=== PATIENT | male | born 1960 | race Caucasian/White ===

== ENCOUNTER 2024-08-20 10:39 | Day surgery (SDC) | payer MEDICARE, SELFPAY ==
--- NOTE | 2024-08-16 14:28 | PAT.ANESEVAL ---
Pre-Assessment Diagnosis/Proposed Procedure Planned Operative Procedure(s): CSCOPE Anesthesia History Anesthesia History - assistant director of financial aid: Anesthesia History - assistant director of financial aid Hx Hospitalization No 08/16/24 11:27 Any Problems With Anesthesia No 08/16/24 11:27 Cholinesterase deficiency No 08/16/24 11:27 You/Your Family Experience No 08/16/24 11:27 fever (hyperthermia) with Relationship Recent Exposure to Contagious Disease Does patient have nerve No 08/16/24 11:27 stimulator Patient instructed to have device shut off --Does patient have Pacemaker or ICD? When Was Last Pacemaker Check QUESTION #4 FULL TEXT: You/Your Family Experience fever (hyperthermia) with Anesthesia Last Oral Intake Last Oral intake: Last Oral Intake NPO since Meds taken in AM with sips of water? Meds patient instructed to take am of surgery PONV PONV - assistant director of financial aid: PONV - assistant director of financial aid Female No 08/16/24 11:27 HX of Motion Sickness No 08/16/24 11:27 HX of N/V After Surgery No 08/16/24 11:27 Non-Smoker Yes 08/16/24 11:27 Duration of Surgery greater No 08/16/24 11:27 than 60 minutes Number of Risk Factors 1 08/16/24 11:27 PONV Score Low Risk 08/16/24 11:27 Respiratory Assessment Respiratory Assessment - assistant director of financial aid: Respiratory Tract Infection Hx - assistant director of financial aid Hx Respiratory Tract Infection No 08/16/24 11:27 STOP Sleep Apnea STOP Sleep Apnea - assistant director of financial aid: STOP Sleep Apnea - assistant director of financial aid Hx Hypertension Yes: CONTROLLED WITH MED 08/16/24 11:27 Hx Sleep Apnea Yes 08/16/24 11:27 CPAP No 08/16/24 11:27 BIPAP Yes 08/16/24 11:27 Do you snore loudly (louder than talking or can be heard Do you often feel tired/ fatigued/ sleepy during daytime? Has anyone observed you stop breathing during sleep? STOP Results Positive 08/16/24 11:27 QUESTION #5 FULL TEXT : Do you snore loudly (louder than talking or can be heard through closed doors)? 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 Specify any problems Hx of Preganancy in last 3 N/A 08/16/24 11:27 Months Nurse Filling Out Transfusion DSCHRIBER 08/16/24 11:27 & Questions: Date: 08/16/24 08/16/24 11:27 Time: 11:08/16/24 11:27 Patient unable to answer at this time (ie. confused, unrespo /Reproduction History /Reproductive History - assistant director of financial aid: /Reproductive Hx- assistant director of financial aid Hx Now No 08/16/24 11:27 Gestational Age (in weeks): EDC: Hx Hx Para Hx Section SAB No 08/16/24 11:27 PFSH Medical History (Updated 08/16/24 @ 11:40 by Antoinette Mi) Loss of hearing Alcohol use Thyroid disease Insulin dependent diabetes mellitus History of renal disease DVT (deep venous thrombosis) Back pain Dietary restriction Former smoker BiPAP (biphasic positive airway pressure) dependence Shortness of breath on exertion Leg cramps History of edema History of echocardiogram History of stress test Cardiology follow-up encounter History of trigger finger Vitamin D deficiency History of colon polyps Peripheral neuropathy HLD (hyperlipidemia) GERD (gastroesophageal reflux disease) HTN (hypertension) Aortic thrombus Paroxysmal atrial fibrillation Home Medications ?Medication ?Instructions ?Recorded ?Last Taken ?Type apixaban 5 mg tablet (Eliquis) 5 mg PO BID 04/15/24 06/23/24 History ascorbic acid (vitamin C) 1,000 mg 1 g PO DAILY 04/15/24 Unknown History capsule insulin regular hum U-500 conc 500 See Rx Instructions .Route .COMPLEX 04/15/24 Unknown History unit/mL subcutaneous soln (Humulin R U-500 (Concentrated) Insulin) metoprolol succinate 200 mg 200 mg PO QDAY 04/15/24 Unknown History tablet,extended release 24 hr (Toprol XL) omega 1-ndk-teo-fish oil 300 1 cap PO QDAY 04/15/24 Unknown History mg-1,000 mg capsule (Fish Oil) rosuvastatin 10 mg tablet (Crestor) 10 mg PO QDAY 04/15/24 Unknown History semaglutide 0.25 mg or 0.5 mg (2 0.25 mg subcut QWEEK 04/15/24 08/01/24 History mg/3 mL) subcutaneous pen injector (Ozempic) lisinopril 30 mg tablet 30 mg PO DAILY 06/25/24 Unknown History magnesium 200 mg tablet 200 mg PO DAILY 06/25/24 Unknown History sotalol 80 mg tablet 40 mg PO BID 06/25/24 Unknown History cholecalciferol (vitamin D3) 125 125 mcg PO DAILY 08/16/24 Unknown History mcg (5,000 unit) tablet (Vitamin D3) dapagliflozin propanediol 10 mg 20 mg PO DAILY 08/16/24 08/16/24 History tablet (Farxiga) Allergy/AdvReac Type Severity Reaction Status Date / Time empagliflozin (From AdvReac Intermediate Other Verified 06/25/24 15:34 Jardiance) Family History Father Aspiration pneumonia Skin cancer Hypertension Mother COPD (chronic obstructive pulmonary disease) Surgical History (Updated 08/16/24 @ 11:40 by Antoinette Mi) Hx of right cataract extraction History of cardiac radiofrequency ablation H/O cardiac catheterization H/O colonoscopy History of carpal tunnel release of both wrists H/O right inguinal hernia repair H/O left inguinal hernia repair Social History Smoking Status: Former smoker quit date: 02/06/83 alcohol intake: current alcohol intake frequency: a few times a month substance use type: does not use Audit: Pertinent Findings Pertinent Findings EKG Perinent findings: 06/04/2024. Sinus rhythm premature supraventricular complexes. Otherwise negative. Echo (EF%) pertinent findings: 06/13/2024. EF 60 to 65%. Mild aortic stenosis. Mean gradient 6 mmHg. Recommendation Anesthesia Recommendation Anesthesia recommendation: OPTIMIZED for anesthesia
--- NOTE | 2024-08-16 14:28 | PAT.ANESEVAL ---
Pre-Assessment Diagnosis/Proposed Procedure Planned Operative Procedure(s): CSCOPE Anesthesia History Anesthesia History - contact center professional: Anesthesia History - contact center professional Hx Hospitalization No 08/16/24 11:27 Any Problems With Anesthesia No 08/16/24 11:27 Cholinesterase deficiency No 08/16/24 11:27 You/Your Family Experience No 08/16/24 11:27 fever (hyperthermia) with Relationship Recent Exposure to Contagious Disease Does patient have nerve No 08/16/24 11:27 stimulator Patient instructed to have device shut off --Does patient have Pacemaker or ICD? When Was Last Pacemaker Check QUESTION #4 FULL TEXT: You/Your Family Experience fever (hyperthermia) with Anesthesia Last Oral Intake Last Oral intake: Last Oral Intake NPO since Meds taken in AM with sips of water? Meds patient instructed to take am of surgery PONV PONV - contact center professional: PONV - contact center professional Female No 08/16/24 11:27 HX of Motion Sickness No 08/16/24 11:27 HX of N/V After Surgery No 08/16/24 11:27 Non-Smoker Yes 08/16/24 11:27 Duration of Surgery greater No 08/16/24 11:27 than 60 minutes Number of Risk Factors 1 08/16/24 11:27 PONV Score Low Risk 08/16/24 11:27 Respiratory Assessment Respiratory Assessment - contact center professional: Respiratory Tract Infection Hx - contact center professional Hx Respiratory Tract Infection No 08/16/24 11:27 STOP Sleep Apnea STOP Sleep Apnea - contact center professional: STOP Sleep Apnea - contact center professional Hx Hypertension Yes: CONTROLLED WITH MED 08/16/24 11:27 Hx Sleep Apnea Yes 08/16/24 11:27 CPAP No 08/16/24 11:27 BIPAP Yes 08/16/24 11:27 Do you snore loudly (louder than talking or can be heard Do you often feel tired/ fatigued/ sleepy during daytime? Has anyone observed you stop breathing during sleep? STOP Results Positive 08/16/24 11:27 QUESTION #5 FULL TEXT : Do you snore loudly (louder than talking or can be heard through closed doors)? 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 Specify any problems Hx of Preganancy in last 3 N/A 08/16/24 11:27 Months Nurse Filling Out Transfusion DSCHRIBER 08/16/24 11:27 & Questions: Date: 08/16/24 08/16/24 11:27 Time: 11:08/16/24 11:27 Patient unable to answer at this time (ie. confused, unrespo /Reproduction History /Reproductive History - contact center professional: /Reproductive Hx- contact center professional Hx Now No 08/16/24 11:27 Gestational Age (in weeks): EDC: Hx Hx Para Hx Section SAB No 08/16/24 11:27 PFSH Medical History (Updated 08/16/24 @ 11:40 by Antoinette Mi) Loss of hearing Alcohol use Thyroid disease Insulin dependent diabetes mellitus History of renal disease DVT (deep venous thrombosis) Back pain Dietary restriction Former smoker BiPAP (biphasic positive airway pressure) dependence Shortness of breath on exertion Leg cramps History of edema History of echocardiogram History of stress test Cardiology follow-up encounter History of trigger finger Vitamin D deficiency History of colon polyps Peripheral neuropathy HLD (hyperlipidemia) GERD (gastroesophageal reflux disease) HTN (hypertension) Aortic thrombus Paroxysmal atrial fibrillation Home Medications ?Medication ?Instructions ?Recorded ?Last Taken ?Type apixaban 5 mg tablet (Eliquis) 5 mg PO BID 04/15/24 06/23/24 History ascorbic acid (vitamin C) 1,000 mg 1 g PO DAILY 04/15/24 Unknown History capsule insulin regular hum U-500 conc 500 See Rx Instructions .Route .COMPLEX 04/15/24 Unknown History unit/mL subcutaneous soln (Humulin R U-500 (Concentrated) Insulin) metoprolol succinate 200 mg 200 mg PO QDAY 04/15/24 Unknown History tablet,extended release 24 hr (Toprol XL) omega 3-skp-tll-fish oil 300 1 cap PO QDAY 04/15/24 Unknown History mg-1,000 mg capsule (Fish Oil) rosuvastatin 10 mg tablet (Crestor) 10 mg PO QDAY 04/15/24 Unknown History semaglutide 0.25 mg or 0.5 mg (2 0.25 mg subcut QWEEK 04/15/24 08/01/24 History mg/3 mL) subcutaneous pen injector (Ozempic) lisinopril 30 mg tablet 30 mg PO DAILY 06/25/24 Unknown History magnesium 200 mg tablet 200 mg PO DAILY 06/25/24 Unknown History sotalol 80 mg tablet 40 mg PO BID 06/25/24 Unknown History cholecalciferol (vitamin D3) 125 125 mcg PO DAILY 08/16/24 Unknown History mcg (5,000 unit) tablet (Vitamin D3) dapagliflozin propanediol 10 mg 20 mg PO DAILY 08/16/24 08/16/24 History tablet (Farxiga) Allergy/AdvReac Type Severity Reaction Status Date / Time empagliflozin (From AdvReac Intermediate Other Verified 06/25/24 15:34 Jardiance) Family History Father Aspiration pneumonia Skin cancer Hypertension Mother COPD (chronic obstructive pulmonary disease) Surgical History (Updated 08/16/24 @ 11:40 by Antoinette Mi) Hx of right cataract extraction History of cardiac radiofrequency ablation H/O cardiac catheterization H/O colonoscopy History of carpal tunnel release of both wrists H/O right inguinal hernia repair H/O left inguinal hernia repair Social History Smoking Status: Former smoker quit date: 02/06/83 alcohol intake: current alcohol intake frequency: a few times a month substance use type: does not use Audit: Pertinent Findings Pertinent Findings EKG Perinent findings: 06/04/2024. Sinus rhythm premature supraventricular complexes. Otherwise negative. Echo (EF%) pertinent findings: 06/13/2024. EF 60 to 65%. Mild aortic stenosis. Mean gradient 6 mmHg. Recommendation Anesthesia Recommendation Anesthesia recommendation: OPTIMIZED for anesthesia
[2024-08-20] VITALS (8 sets, daily range): BP systolic 117–147; BP diastolic 66–79; PULSE 55–62; RESP 16–18; TEMP 36.5–36.6; O2SAT 94–97; BMI 41.5
[2024-08-20] MEDS: Lactated Ringers 1,000 ML 15 ML IV (11:20)
--- NOTE | 2024-08-20 12:00 | COLBX_PTH ---
PATIENT: JOSE LUIS BLACK LOC: EN U#:[id number] AGE/SX: 64/M ROOM: RE08/20/[address]: Dr. Edilson Porras DO : 1960 BED: DIS: 08/20/2024 SPEC #: [id number] RECD: 08/20/24 15:03 STATUS: CYNTHIA LANDAVERDE #: [id number] KARI: 08/20/24 12:[address]: Edilson Porras DEPT: SURGICAL PATHOLOGY RECD BY: Jonas Navarro ENTERED: 08/20/24 15:31 SP TYPE: COLON BX OTHR DR: Dr. Shelly Neely MD Tissues: A - Cecum, NOS B - Ascending colon Procedures: Surgery Specimen Level IV HEADER OPERATION: Colonoscopyy with polyp biopsy PRE-OP DIAGNOSIS: Encounter for screening colonoscopy for non-high risk patient TISSUE SUBMITTED: A- Cecal polyp biopsy, B- Ascending colon polyp biopsy MICROSCOPIC DIAGNOSIS A. Colon, cecum, polyp, biopsy: * Tubular adenoma B. Colon, ascending polyp, biopsy: * Sessile serrated adenoma MICROSCOPIC DESCRIPTION Slides are reviewed. GROSS DESCRIPTION A. Received in fixative is one container labeled with the patient's name and designated Cecal polyp biopsy. The specimen consists of two irregular fragments of light day soft tissue that in aggregate measure 0.1 to 0.4 cm. The specimen is totally submitted in one cassette. B. Received in fixative is one container labeled with the patient's name and designated Ascending colon polyp biopsy. The specimen consists of one irregular fragment of light day soft tissue that measures 0.3 cm. The specimen is totally submitted in one cassette. Oly 08/20/2024 CPT:09456a4
--- NOTE | 2024-08-20 12:00 | COLBX_PTH ---
PATIENT: JOSE LUIS BLACK LOC: EN U#:[id number] AGE/SX: 64/M ROOM: RE08/20/[address]: Dr. Edilson Porras DO : 1960 BED: DIS: 08/20/2024 SPEC #: [id number] RECD: 08/20/24 15:03 STATUS: CYNTHIA LANDAVERDE #: [id number] KARI: 08/20/24 12:[address]: Edilson Porras DEPT: SURGICAL PATHOLOGY RECD BY: Jonas Navarro ENTERED: 08/20/24 15:31 SP TYPE: COLON BX OTHR DR: Dr. Shelly Neely MD Tissues: A - Cecum, NOS B - Ascending colon Procedures: Surgery Specimen Level IV HEADER OPERATION: Colonoscopyy with polyp biopsy PRE-OP DIAGNOSIS: Encounter for screening colonoscopy for non-high risk patient TISSUE SUBMITTED: A- Cecal polyp biopsy, B- Ascending colon polyp biopsy MICROSCOPIC DIAGNOSIS A. Colon, cecum, polyp, biopsy: * Tubular adenoma B. Colon, ascending polyp, biopsy: * Sessile serrated adenoma MICROSCOPIC DESCRIPTION Slides are reviewed. GROSS DESCRIPTION A. Received in fixative is one container labeled with the patient's name and designated Cecal polyp biopsy. The specimen consists of two irregular fragments of light day soft tissue that in aggregate measure 0.1 to 0.4 cm. The specimen is totally submitted in one cassette. B. Received in fixative is one container labeled with the patient's name and designated Ascending colon polyp biopsy. The specimen consists of one irregular fragment of light day soft tissue that measures 0.3 cm. The specimen is totally submitted in one cassette. Oly 08/20/2024 CPT:90575h9
--- NOTE | 2024-08-20 12:15 | PRE.ANES_ITS ---
ASA Classification* ASA Classification ASA Classification: 3 Assessment & Plan Anesthesia* Anesthesia Assessment Anesthesia Assessment: Discussed sedation and/or anesthesia options, risks, benefits, and alternatives with patient/parents/legal guardian/POA. Questions invited. The patient/parents/legal guardian/POA seems to understand and agrees to proceed with anesthesia plan. Reviewed the physical assessment, medical history, allergy history and patient home medications list prior to surgery/procedure/anesthetic and documented any changes. Performed airway and anesthesia risk assessments. Anesthesia Type Anesthesia Type: MAC (Patient has mild aortic stenosis. Avoid increased heart rate or decrease blood pressure. Phenylephrine is drug of choice.) History Source History Obtained from:: Patient and Chart Anesthesia Focused Assessment* Temperature: 97.8 F Pulse Rate: 58 Blood Pressure: 147/79 Respiratory Rate: 18 Pulse Ox: 95 Oxygen Delivery Method: Room Air Airway Assessment Mouth opens: >3 cm Mallampati Score: III Teeth Condition: Loose (Tooth #13 is slightly loose.) and Missing (Patient is missing couple teeth.) Neck Range of motion (ROM): Limited ROM (Slight Decrease) Labs Anesthesia Preop lab: CBC CHEMISTRY POC Glucose 204 mg/dL (74-106) H 08/20/24 11:07 08/20/24 COAG Pre-Assessment Diagnosis/Proposed Procedure Planned Operative Procedure(s): CSCOPE Anesthesia History 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 When Was Last Pacemaker Check QUESTION #4 FULL TEXT: You/Your Family Experience fever (hyperthermia) with Anesthesia Last Oral Intake Last Oral intake: Last Oral Intake NPO since 08:00 08/20/24 11:17 Meds taken in AM with sips of Yes 08/20/24 11:17 water? Meds patient instructed to take am of surgery Any additional information?: Yes NPO since: 08:00 (Patient finished his prep at 8 AM.) Meds taken in AM with sips of water?: Yes Meds patient instructed to take am of surgery: Sotalol PONV PONV - breaker unit assembler: PONV - breaker unit assembler Female No 08/16/24 11:27 HX of Motion Sickness No 08/16/24 11:27 HX of N/V After Surgery No 08/16/24 11:27 Non-Smoker Yes 08/16/24 11:27 Duration of Surgery greater No 08/16/24 11:27 than 60 minutes Number of Risk Factors 1 08/16/24 11:27 PONV Score Low Risk 08/16/24 11:27 Height & Weight Height & Weight: Anesthesia: Height & Weight Height 5 ft 8 in 08/20/24 11:17 Weight: 124 kg 08/20/24 11:17 Body Mass Index (BMI) 41.5 08/20/24 11:17 Respiratory Assessment Respiratory Assessment - breaker unit assembler: Respiratory Tract Infection Hx - breaker unit assembler Hx Respiratory Tract Infection No 08/16/24 11:27 STOP Sleep Apnea STOP Sleep Apnea - breaker unit assembler: STOP Sleep Apnea - breaker unit assembler Hx Hypertension Yes: CONTROLLED WITH MED 08/16/24 11:27 Hx Sleep Apnea Yes 08/16/24 11:27 CPAP No 08/16/24 11:27 BIPAP Yes 08/16/24 11:27 Do you snore loudly (louder than talking or can be heard Do you often feel tired/ fatigued/ sleepy during daytime? Has anyone observed you stop breathing during sleep? STOP Results Positive 08/16/24 11:27 QUESTION #5 FULL TEXT : Do you snore loudly (louder than talking or can be heard through closed doors)? 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 Specify any problems Hx of Preganancy in last 3 N/A 08/16/24 11:27 Months Nurse Filling Out Transfusion DSCHRIBER 08/16/24 11:27 & Questions: Date: 08/16/24 08/16/24 11:27 Time: 11:08/16/24 11:27 Patient unable to answer at this time (ie. confused, unrespo /Reproduction History /Reproductive History - breaker unit assembler: /Reproductive Hx- breaker unit assembler Hx Now No 08/16/24 11:27 Gestational Age (in weeks): EDC: Hx Hx Para Hx Section SAB No 08/16/24 11:27 Active Medications Active Medications: Current Medications Generic Name Dose Route Start Last Admin Trade Name Freq PRN Reason Stop Dose Admin Lactated Ringer's 1,000 mls @ 15 mls/hr 08/20/24 11:00 08/20/24 11:20 IV 15 mls/hr .Q48H SHAYNA Administration PFSH Medical History Loss of hearing Alcohol use Thyroid disease Insulin dependent diabetes mellitus History of renal disease DVT (deep venous thrombosis) Back pain Dietary restriction Former smoker BiPAP (biphasic positive airway pressure) dependence Shortness of breath on exertion Leg cramps History of edema History of echocardiogram History of stress test Cardiology follow-up encounter History of trigger finger Vitamin D deficiency History of colon polyps Peripheral neuropathy HLD (hyperlipidemia) GERD (gastroesophageal reflux disease) HTN (hypertension) Aortic thrombus Paroxysmal atrial fibrillation Home Medications ?Medication ?Instructions ?Recorded ?Last Taken ?Type apixaban 5 mg tablet (Eliquis) 5 mg PO BID 04/15/24 History ascorbic acid (vitamin C) 1,000 mg 1 g PO DAILY Unknown History capsule insulin regular hum U-500 conc 500 See Rx Instructions .Route .COMPLEX 04/15/24 Unknown History unit/mL subcutaneous soln (Humulin R U-500 (Concentrated) Insulin) metoprolol succinate 200 mg 200 mg PO QDAY 04/15/24 Un known History tablet,extended release 24 hr (Toprol XL) omega 5-bgh-qqf-fish oil 300 1 cap PO QDAY 04/15/24 Un known History mg-1,000 mg capsule (Fish Oil) rosuvastatin 10 mg tablet (Crestor) 10 mg PO QDAY 04/06 Unknown History semaglutide 0.25 mg or 0.5 mg (2 0.25 mg subcut QWEEK 04/15/24 08/01/24 History mg/3 mL) subcutaneous pen injector (Ozempic) lisinopril 30 mg tablet 30 mg PO DAILY 06/25/24 Unkn own History magnesium 200 mg tablet 200 mg PO DAILY 06/25/24 Unk nown History sotalol 80 mg tablet 40 mg PO BID 06/25/24 08:00 History cholecalciferol (vitamin D3) 125 125 mcg PO DAILY 08/06 03/02 Unknown History mcg (5,000 unit) tablet (Vitamin D3) dapagliflozin propanediol 10 mg 20 mg PO DAILY 5 08/18/24 History tablet (Farxiga) Allergy/AdvReac Type Severity Reaction Status Date / Time empagliflozin (From AdvReac Intermediate Other Verified 08/20/24 11:15 Jardiance) Family History Father Aspiration pneumonia Skin cancer Hypertension Mother COPD (chronic obstructive pulmonary disease) Surgical History Hx of right cataract extraction History of cardiac radiofrequency ablation H/O cardiac catheterization H/O colonoscopy History of carpal tunnel release of both wrists H/O right inguinal hernia repair H/O left inguinal hernia repair Social History Smoking Status: Former smoker quit date: 02/06/83 alcohol intake: current alcohol intake frequency: a few times a month substance use type: does not use Review of Systems (Anesthesia) ROS Narrative System reviewed and no additional complaints, except as documented.
--- NOTE | 2024-08-20 12:15 | PRE.ANES_ITS ---
ASA Classification* ASA Classification ASA Classification: 3 Assessment & Plan Anesthesia* Anesthesia Assessment Anesthesia Assessment: Discussed sedation and/or anesthesia options, risks, benefits, and alternatives with patient/parents/legal guardian/POA. Questions invited. The patient/parents/legal guardian/POA seems to understand and agrees to proceed with anesthesia plan. Reviewed the physical assessment, medical history, allergy history and patient home medications list prior to surgery/procedure/anesthetic and documented any changes. Performed airway and anesthesia risk assessments. Anesthesia Type Anesthesia Type: MAC (Patient has mild aortic stenosis. Avoid increased heart rate or decrease blood pressure. Phenylephrine is drug of choice.) History Source History Obtained from:: Patient and Chart Anesthesia Focused Assessment* Temperature: 97.8 F Pulse Rate: 58 Blood Pressure: 147/79 Respiratory Rate: 18 Pulse Ox: 95 Oxygen Delivery Method: Room Air Airway Assessment Mouth opens: >3 cm Mallampati Score: III Teeth Condition: Loose (Tooth #13 is slightly loose.) and Missing (Patient is missing couple teeth.) Neck Range of motion (ROM): Limited ROM (Slight Decrease) Labs Anesthesia Preop lab: CBC CHEMISTRY POC Glucose 204 mg/dL (74-106) H 08/20/24 11:07 08/20/24 COAG Pre-Assessment Diagnosis/Proposed Procedure Planned Operative Procedure(s): CSCOPE Anesthesia History 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 When Was Last Pacemaker Check QUESTION #4 FULL TEXT: You/Your Family Experience fever (hyperthermia) with Anesthesia Last Oral Intake Last Oral intake: Last Oral Intake NPO since 08:00 08/20/24 11:17 Meds taken in AM with sips of Yes 08/20/24 11:17 water? Meds patient instructed to take am of surgery Any additional information?: Yes NPO since: 08:00 (Patient finished his prep at 8 AM.) Meds taken in AM with sips of water?: Yes Meds patient instructed to take am of surgery: Sotalol PONV PONV - principal android developer: PONV - principal android developer Female No 08/16/24 11:27 HX of Motion Sickness No 08/16/24 11:27 HX of N/V After Surgery No 08/16/24 11:27 Non-Smoker Yes 08/16/24 11:27 Duration of Surgery greater No 08/16/24 11:27 than 60 minutes Number of Risk Factors 1 08/16/24 11:27 PONV Score Low Risk 08/16/24 11:27 Height & Weight Height & Weight: Anesthesia: Height & Weight Height 5 ft 8 in 08/20/24 11:17 Weight: 124 kg 08/20/24 11:17 Body Mass Index (BMI) 41.5 08/20/24 11:17 Respiratory Assessment Respiratory Assessment - principal android developer: Respiratory Tract Infection Hx - principal android developer Hx Respiratory Tract Infection No 08/16/24 11:27 STOP Sleep Apnea STOP Sleep Apnea - principal android developer: STOP Sleep Apnea - principal android developer Hx Hypertension Yes: CONTROLLED WITH MED 08/16/24 11:27 Hx Sleep Apnea Yes 08/16/24 11:27 CPAP No 08/16/24 11:27 BIPAP Yes 08/16/24 11:27 Do you snore loudly (louder than talking or can be heard Do you often feel tired/ fatigued/ sleepy during daytime? Has anyone observed you stop breathing during sleep? STOP Results Positive 08/16/24 11:27 QUESTION #5 FULL TEXT : Do you snore loudly (louder than talking or can be heard through closed doors)? 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 Specify any problems Hx of Preganancy in last 3 N/A 08/16/24 11:27 Months Nurse Filling Out Transfusion DSCHRIBER 08/16/24 11:27 & Questions: Date: 08/16/24 08/16/24 11:27 Time: 11:08/16/24 11:27 Patient unable to answer at this time (ie. confused, unrespo /Reproduction History /Reproductive History - principal android developer: /Reproductive Hx- principal android developer Hx Now No 08/16/24 11:27 Gestational Age (in weeks): EDC: Hx Hx Para Hx Section SAB No 08/16/24 11:27 Active Medications Active Medications: Current Medications Generic Name Dose Route Start Last Admin Trade Name Freq PRN Reason Stop Dose Admin Lactated Ringer's 1,000 mls @ 15 mls/hr 08/20/24 11:00 08/20/24 11:20 IV 15 mls/hr .Q48H SHAYNA Administration PFSH Medical History Loss of hearing Alcohol use Thyroid disease Insulin dependent diabetes mellitus History of renal disease DVT (deep venous thrombosis) Back pain Dietary restriction Former smoker BiPAP (biphasic positive airway pressure) dependence Shortness of breath on exertion Leg cramps History of edema History of echocardiogram History of stress test Cardiology follow-up encounter History of trigger finger Vitamin D deficiency History of colon polyps Peripheral neuropathy HLD (hyperlipidemia) GERD (gastroesophageal reflux disease) HTN (hypertension) Aortic thrombus Paroxysmal atrial fibrillation Home Medications ?Medication ?Instructions ?Recorded ?Last Taken ?Type apixaban 5 mg tablet (Eliquis) 5 mg PO BID 04/15/24 History ascorbic acid (vitamin C) 1,000 mg 1 g PO DAILY Unknown History capsule insulin regular hum U-500 conc 500 See Rx Instructions .Route .COMPLEX 04/15/24 Unknown History unit/mL subcutaneous soln (Humulin R U-500 (Concentrated) Insulin) metoprolol succinate 200 mg 200 mg PO QDAY 04/15/24 Un known History tablet,extended release 24 hr (Toprol XL) omega 7-chw-uur-fish oil 300 1 cap PO QDAY 04/15/24 Un known History mg-1,000 mg capsule (Fish Oil) rosuvastatin 10 mg tablet (Crestor) 10 mg PO QDAY 04/06 Unknown History semaglutide 0.25 mg or 0.5 mg (2 0.25 mg subcut QWEEK 04/15/24 08/01/24 History mg/3 mL) subcutaneous pen injector (Ozempic) lisinopril 30 mg tablet 30 mg PO DAILY 06/25/24 Unkn own History magnesium 200 mg tablet 200 mg PO DAILY 06/25/24 Unk nown History sotalol 80 mg tablet 40 mg PO BID 06/25/24 08:00 History cholecalciferol (vitamin D3) 125 125 mcg PO DAILY 08/06 03/02 Unknown History mcg (5,000 unit) tablet (Vitamin D3) dapagliflozin propanediol 10 mg 20 mg PO DAILY 5 08/18/24 History tablet (Farxiga) Allergy/AdvReac Type Severity Reaction Status Date / Time empagliflozin (From AdvReac Intermediate Other Verified 08/20/24 11:15 Jardiance) Family History Father Aspiration pneumonia Skin cancer Hypertension Mother COPD (chronic obstructive pulmonary disease) Surgical History Hx of right cataract extraction History of cardiac radiofrequency ablation H/O cardiac catheterization H/O colonoscopy History of carpal tunnel release of both wrists H/O right inguinal hernia repair H/O left inguinal hernia repair Social History Smoking Status: Former smoker quit date: 02/06/83 alcohol intake: current alcohol intake frequency: a few times a month substance use type: does not use Review of Systems (Anesthesia) ROS Narrative System reviewed and no additional complaints, except as documented.
--- NOTE | 2024-08-20 12:28 | HP.PCM_ITS ---
HPI - General General Date of Admission: 08/20/24 Date of Service: 08/20/24 HPI Narrative JOSE LUIS BLACK, is a 64 M who presents colonoscopy visit. He states he is uncertain of the exact date of his last colonoscopy, around 2015 he thinks, but his doctor is telling him that it's time for another one. He reports occasional heartburn, rare reflux, and occasional bloating. He denies difficulty chewing and swallowing, cough, throat clearing, sinus drainage, nausea, emesis, abdominal pain, excessive gas, constipation, diarrhea, hematochezia, and melena. He is on apixaban for atrial fibrillation, has had ablations, chemical and electrical cardioversions in the past. He is type II diabetic on humulin R three times daily and semaglutide. ROS Const Constitutional: No fatigue, fever(s) or weight change Eyes Eyes: No blurry vision or change in vision ENT ENT: No abnormal hearing or difficulty swallowing Resp Respiratory: No cough Cardio Cardiology: No chest pain at rest, chest pain with exertion or leg pain with exertion Gastro GI: No abdominal pain, belching, bloating, change in bowel habits, change in stool character, coffee ground emesis, constipation, cramping, diarrhea, heartburn, difficulty swallowing, feeling full early, excessive flatus, incontinent of stools, Vomiting blood/hematemesis, Blood in stool, loose stools, Black,tarry stools, nausea/dyspepsia, pain with swallowing, vomiting or other Genitourinary Male: No difficulty urinating Musc Musculoskeletal: Positive for joint pain, back pain and leg pain at night; No abnormal gait or leg pain with exertion Skin Skin: No yellowing of the eye or itchy eyes Neuro Neurology: No abnormal gait or abnormal hearing Psych Psychiatric: No anxiety and No depression Endo Endocrine: No fatigue or weight change Aller/Imm Allergy/Immunologic: No food intolerance or itchy eyes Justen/Lymp Hematologic/Lymphatic: Positive for easy bruising; No easy bleeding Exam Const General: cooperative, healthy appearing, comfortable and no acute distress Nutritional Appearance: obese centrally obese Orientation: alert and oriented x3 HENMT Head: normal to inspection Ears: hearing grossly normal bilaterally Nose: external nose normal Face and sinus: normal facial exam and face symmetric Eyes General: appearance normal, both eyes and all related structures Sclera: sclerae normal Neck Neck: normal visual inspection and full ROM Chest Chest palpation & inspection: normal inspection of the chest Resp Effort & Inspection: normal respiratory effort, able to speak in complete sentences and symmetric chest movement GI Inspection: normal to inspection, distended and obesity Auscultation: normal bowel sounds Percussion: normal to percussion Palpation: soft and no hepatosplenomegaly Skin General: no rashes or lesions noted Neuro General: patient alert, patient oriented x3 and moves all extremities Cognition: normal cognition Speech: speech normal Gait: normal gait Extrem General: full ROM Psych Appearance: well kempt Mental Status: mental status grossly normal Judgment: judgment good Assessment and Plan Assessment and Plan (1) Encounter for screening colonoscopy for [id number] patient: Status: Acute Plan JOSE LUIS BLACK, is a 64 M who presents to the office today for Pre-colonoscopy visit. Clearances required from cardiology regarding holding apixaban and endocrinology regarding insulin and semaglutide use. Discussed increasing protein intake two days prior to clear liquid diet requirement to assist with maintaining serum glucose levels appropriately. [facility] Medical History Loss of hearing Alcohol use Thyroid disease Insulin dependent diabetes mellitus History of renal disease DVT (deep venous thrombosis) Back pain Dietary restriction Former smoker BiPAP (biphasic positive airway pressure) dependence Shortness of breath on exertion Leg cramps History of edema History of echocardiogram History of stress test Cardiology follow-up encounter History of trigger finger Vitamin D deficiency History of colon polyps Peripheral neuropathy HLD (hyperlipidemia) GERD (gastroesophageal reflux disease) HTN (hypertension) Aortic thrombus Paroxysmal atrial fibrillation Home Medications ?Medication ?Instructions ?Recorded ?Last Taken ?Type apixaban 5 mg tablet (Eliquis) 5 mg PO BID 04/15/24 History ascorbic acid (vitamin C) 1,000 mg 1 g PO DAILY Unknown History capsule insulin regular hum U-500 conc 500 See Rx Instructions .Route .COMPLEX 04/15/24 Unknown History unit/mL subcutaneous soln (Humulin R U-500 (Concentrated) Insulin) metoprolol succinate 200 mg 200 mg PO QDAY 04/15/24 Un known History tablet,extended release 24 hr (Toprol XL) omega 8-soa-uin-fish oil 300 1 cap PO QDAY 04/15/24 Un known History mg-1,000 mg capsule (Fish Oil) rosuvastatin 10 mg tablet (Crestor) 10 mg PO QDAY 04/06 Unknown History semaglutide 0.25 mg or 0.5 mg (2 0.25 mg subcut QWEEK 04/15/24 08/01/24 History mg/3 mL) subcutaneous pen injector (Ozempic) lisinopril 30 mg tablet 30 mg PO DAILY 06/25/24 Unkn own History magnesium 200 mg tablet 200 mg PO DAILY 06/25/24 Unk nown History sotalol 80 mg tablet 40 mg PO BID 06/25/24 08:00 History cholecalciferol (vitamin D3) 125 125 mcg PO DAILY 08/06 03/02 Unknown History mcg (5,000 unit) tablet (Vitamin D3) dapagliflozin propanediol 10 mg 20 mg PO DAILY 5 08/18/24 History tablet (Farxiga) Allergy/AdvReac Type Severity Reaction Status Date / Time empagliflozin (From AdvReac Intermediate Other Verified 08/20/24 11:15 Jardiance) Family History Father Aspiration pneumonia Skin cancer Hypertension Mother COPD (chronic obstructive pulmonary disease) Surgical History Hx of right cataract extraction History of cardiac radiofrequency ablation H/O cardiac catheterization H/O colonoscopy History of carpal tunnel release of both wrists H/O right inguinal hernia repair H/O left inguinal hernia repair Social History Smoking Status: Former smoker quit date: 02/06/83 alcohol intake: current alcohol intake frequency: a few times a month substance use type: does not use Vital Signs Vital Signs Vital Signs: 08/20/24 11:17 08/20/24 11:17 08/20/24 12:26 Temperature 97.8 F 97.8 F Temperature Source Temporal Pulse Rate 58 L 58 L Respiratory Rate 18 18 Respiratory Pattern Normal Blood Pressure 147/79 H 147/79 H Blood Pressure Mean 101 Blood Pressure Source Monitor Blood Pressure Position Semi-Fowlers Blood Pressure Location Right Arm Pulse Ox 95 95 Oxygen Delivery Method Room Air Room Air Weight Weight: 273 lb 5.971 oz Body Mass Index (BMI) 41.5 Results Lab / Micro Data Labs: Laboratory Results - last 24 hr 08/20/24 11:07: POC Glucose 204 H
--- NOTE | 2024-08-20 12:28 | PCM.HP.STD ---
HPI - General General Date of Admission: 08/20/24 Date of Service: 08/20/24 Chief Complaint: Screening colonoscopy HPI Narrative JOSE LUIS BLACK, is a 64 M who presents for colonoscopy. He states he is uncertain of the exact date of his last colonoscopy, around 2015 he thinks, but his doctor is telling him that it's time for another one. He reports occasional heartburn, rare reflux, and occasional bloating. He denies difficulty chewing and swallowing, cough, throat clearing, sinus drainage, nausea, emesis, abdominal pain, excessive gas, constipation, diarrhea, hematochezia, and melena. He is on apixaban for atrial fibrillation, has had ablations, chemical and electrical cardioversions in the past. He is type II diabetic on humulin R three times daily and semaglutide. [facility] Medical History Loss of hearing Alcohol use Thyroid disease Insulin dependent diabetes mellitus History of renal disease DVT (deep venous thrombosis) Back pain Dietary restriction Former smoker BiPAP (biphasic positive airway pressure) dependence Shortness of breath on exertion Leg cramps History of edema History of echocardiogram History of stress test Cardiology follow-up encounter History of trigger finger Vitamin D deficiency History of colon polyps Peripheral neuropathy HLD (hyperlipidemia) GERD (gastroesophageal reflux disease) HTN (hypertension) Aortic thrombus Paroxysmal atrial fibrillation Home Medications ?Medication ?Instructions ?Recorded ?Last Taken ?Type apixaban 5 mg tablet (Eliquis) 5 mg PO BID 04/15/24 08/18/24 History ascorbic acid (vitamin C) 1,000 mg 1 g PO DAILY 04/15/24 Unknown History capsule insulin regular hum U-500 conc 500 See Rx Instructions .Route .COMPLEX 04/15/24 Unknown History unit/mL subcutaneous soln (Humulin R U-500 (Concentrated) Insulin) metoprolol succinate 200 mg 200 mg PO QDAY 04/15/24 Unknown History tablet,extended release 24 hr (Toprol XL) omega 8-zds-klq-fish oil 300 1 cap PO QDAY 04/15/24 Unknown History mg-1,000 mg capsule (Fish Oil) rosuvastatin 10 mg tablet (Crestor) 10 mg PO QDAY 04/15/24 Unknown History semaglutide 0.25 mg or 0.5 mg (2 0.25 mg subcut QWEEK 04/15/24 08/01/24 History mg/3 mL) subcutaneous pen injector (Ozempic) lisinopril 30 mg tablet 30 mg PO DAILY 06/25/24 Unknown History magnesium 200 mg tablet 200 mg PO DAILY 06/25/24 Unknown History sotalol 80 mg tablet 40 mg PO BID 06/25/24 08/20/24 08:00 History cholecalciferol (vitamin D3) 125 125 mcg PO DAILY 08/16/24 Unknown History mcg (5,000 unit) tablet (Vitamin D3) dapagliflozin propanediol 10 mg 20 mg PO DAILY 08/16/24 08/18/24 History tablet (Farxiga) Allergy/AdvReac Type Severity Reaction Status Date / Time empagliflozin (From AdvReac Intermediate Other Verified 08/20/24 11:15 Jardiance) Family History Father Aspiration pneumonia Skin cancer Hypertension Mother COPD (chronic obstructive pulmonary disease) Surgical History Hx of right cataract extraction History of cardiac radiofrequency ablation H/O cardiac catheterization H/O colonoscopy History of carpal tunnel release of both wrists H/O right inguinal hernia repair H/O left inguinal hernia repair Social History Smoking Status: Former smoker quit date: 02/06/83 alcohol intake: current alcohol intake frequency: a few times a month substance use type: does not use ROS Constitutional Constitutional: Denies fatigue, fever(s), poor appetite, weight gain or weight loss Gastrointestinal Gastrointestinal: Denies belching, bloating, change in bowel habits, change in stool character, chewing difficulty, coffee ground emesis, constipation, cramping, diarrhea, dyspepsia, dysphagia, early satiety, excessive flatus, fecal incontinence, heartburn, hematemesis, hematochezia, hemorrhoids, loose stools, melena, nausea, odynophagia, rectal bleeding, tenesmus, vomiting or weight changes Vital Signs Vital Signs Vital Signs: 08/20/24 11:17 08/20/24 11:17 08/20/24 12:26 Temperature 97.8 F 97.8 F Temperature Source Temporal Pulse Rate 58 L 58 L Respiratory Rate 18 18 Respiratory Pattern Normal Blood Pressure 147/79 H 147/79 H Blood Pressure Mean 101 Blood Pressure Source Monitor Blood Pressure Position Semi-Fowlers Blood Pressure Location Right Arm Pulse Ox 95 95 Oxygen Delivery Method Room Air Room Air Weight Weight: 273 lb 5.971 oz Body Mass Index (BMI) 41.5 Physical Exam Const alert, oriented x3, no apparent distress and healthy appearing General Appearance: cooperative GI normal to inspection, nondistended, normoactive bowel sounds, soft to palpation, non-tender and non-distended Percussion: normal to percussion Rectal Exam: deferred Results Lab / Micro Data Labs: Laboratory Results - last 24 hr 08/20/24 11:07: POC Glucose 204 H Assessment & Plan Assessment/Plan (1) Encounter for screening colonoscopy for [id number] patient: PLAN: Assessment and Plan Assessment and Plan (1) Encounter for screening colonoscopy for [id number] patient: Status: Acute Plan JOSE LUIS BLACK, is a 64 M who presents to the office today for Pre-colonoscopy visit. Clearances required from cardiology regarding holding apixaban and endocrinology regarding insulin and semaglutide use. Discussed increasing protein intake two days prior to clear liquid diet requirement to assist with maintaining serum glucose levels appropriately.
--- NOTE | 2024-08-20 13:35 | OP.CCLET_ITS ---
08/20/2024 Shelly Neely Re : Colonoscopy procedure for Jorge Luis Alvarez Dear Chin This procedure was performed on Tuesday, August 20, 2024. My impressions and recommendations are as follows: Impressions : - Two 7 mm polyps in the ascending colon and in the cecum, removed with a cold biopsy forceps. Resected and retrieved. - Diverticulosis in the recto-sigmoid colon. Recommendations : - Discharge patient to home (ambulatory). - Resume previous diet. - Continue present medications. - Await pathology results. - Repeat colonoscopy in 5 years for surveillance. My findings are described in the full procedure note, which is enclosed. If I can be of further assistance, please feel free to contact me at . Sincerely, Edilson Porras, 08/20/2024 1:35:07 PM This report has been signed electronically.
--- NOTE | 2024-08-20 13:35 | OP.COLON_ITS ---
Patient Name: Jorge Luis Alvarez Procedure Date: 08/20/2024 12:56 PM Date of : 1960 Age: 64 Procedure: Colonoscopy Indications: Screening for colorectal malignant neoplasm Providers: Edilson Porras DO Referring MD: Shelly Neely Medicines: Monitored Anesthesia Care Patient Profile: This is a 64 year old male. Refer to note in patient chart for documentation of history and physical. Last Colonoscopy: more than 10 years ago. Complications: No immediate complications. Procedure: Pre-Anesthesia Assessment: - Prior to the procedure, a History and Physical was performed, and patient medications and allergies were reviewed. The patient is competent. The risks and benefits of the procedure and the sedation options and risks were discussed with the patient. All questions were answered and informed consent was obtained. Patient identification and proposed procedure were verified by the physician in the pre-procedure area. Mental Status Examination: alert and oriented. Airway Examination: normal oropharyngeal airway and neck mobility. Respiratory Examination: clear to auscultation. CV Examination: normal. Prophylactic Antibiotics: The patient does not require prophylactic antibiotics. Prior Anticoagulants: The patient has taken no anticoagulant or antiplatelet agents. ASA Grade Assessment: II - A patient with mild systemic disease. After reviewing the risks and benefits, the patient was deemed in satisfactory condition to undergo the procedure. The anesthesia plan was to use monitored anesthesia care (MAC). Immediately prior to administration of medications, the patient was re-assessed for adequacy to receive sedatives. The heart rate, respiratory rate, oxygen saturations, blood pressure, adequacy of pulmonary ventilation, and response to care were monitored throughout the procedure. The physical status of the patient was re-assessed after the procedure. After I obtained informed consent, the scope was passed under direct vision. Throughout the procedure, the patient's blood pressure, pulse, and oxygen saturations were monitored continuously. The Colonoscope was introduced through the anus and advanced to the cecum, identified by appendiceal orifice and ileocecal valve. The colonoscopy was performed without difficulty. The patient tolerated the procedure well. The quality of the bowel preparation was adequate. Scope In: 1:12:48 PM Scope Withdrawal Time 0 hours 12 minutes 37 seconds Scope Out: 1:28:39 PM Total Procedure Duration Time 0 hours 15 minutes 51 seconds Findings: The perianal and digital rectal examinations were normal. Two sessile polyps were found in the ascending colon and cecum. The polyps were 7 mm in size. These polyps were removed with a cold biopsy forceps. Resection and retrieval were complete. Verification of patient identification for the specimen was done. Estimated blood loss was minimal. A few small-mouthed diverticula were found in the recto-sigmoid colon. Impression: - Two 7 mm polyps in the ascending colon and in the cecum, removed with a cold biopsy forceps. Resected and retrieved. - Diverticulosis in the recto-sigmoid colon. Recommendation: - Discharge patient to home (ambulatory). - Resume previous diet. - Continue present medications. - Await pathology results. - Repeat colonoscopy in 5 years for surveillance. Procedure Code(s): --- Professional --- 49364, Colonoscopy, flexible; with biopsy, single or multiple CPT copyright 2021 [employer]. All rights reserved. The codes documented in this report are preliminary and upon signal circuit designer review may be revised to meet current compliance requirements. Edilson Porras DO 08/20/2024 1:35:07 PM This report has been signed electronically. Number of Addenda: 0 Note Initiated On: 08/20/2024 12:56 PM
--- NOTE | 2024-08-20 13:35 | OP.COLON_ITS ---
Patient Name: Jorge Luis Alvarez Procedure Date: 08/20/2024 12:56 PM Date of : 1960 Age: 64 Procedure: Colonoscopy Indications: Screening for colorectal malignant neoplasm Providers: Edilson Porras DO Referring MD: Shelly Neely Medicines: Monitored Anesthesia Care Patient Profile: This is a 64 year old male. Refer to note in patient chart for documentation of history and physical. Last Colonoscopy: more than 10 years ago. Complications: No immediate complications. Procedure: Pre-Anesthesia Assessment: - Prior to the procedure, a History and Physical was performed, and patient medications and allergies were reviewed. The patient is competent. The risks and benefits of the procedure and the sedation options and risks were discussed with the patient. All questions were answered and informed consent was obtained. Patient identification and proposed procedure were verified by the physician in the pre-procedure area. Mental Status Examination: alert and oriented. Airway Examination: normal oropharyngeal airway and neck mobility. Respiratory Examination: clear to auscultation. CV Examination: normal. Prophylactic Antibiotics: The patient does not require prophylactic antibiotics. Prior Anticoagulants: The patient has taken no anticoagulant or antiplatelet agents. ASA Grade Assessment: II - A patient with mild systemic disease. After reviewing the risks and benefits, the patient was deemed in satisfactory condition to undergo the procedure. The anesthesia plan was to use monitored anesthesia care (MAC). Immediately prior to administration of medications, the patient was re-assessed for adequacy to receive sedatives. The heart rate, respiratory rate, oxygen saturations, blood pressure, adequacy of pulmonary ventilation, and response to care were monitored throughout the procedure. The physical status of the patient was re-assessed after the procedure. After I obtained informed consent, the scope was passed under direct vision. Throughout the procedure, the patient's blood pressure, pulse, and oxygen saturations were monitored continuously. The Colonoscope was introduced through the anus and advanced to the cecum, identified by appendiceal orifice and ileocecal valve. The colonoscopy was performed without difficulty. The patient tolerated the procedure well. The quality of the bowel preparation was adequate. Scope In: 1:12:48 PM Scope Withdrawal Time 0 hours 12 minutes 37 seconds Scope Out: 1:28:39 PM Total Procedure Duration Time 0 hours 15 minutes 51 seconds Findings: The perianal and digital rectal examinations were normal. Two sessile polyps were found in the ascending colon and cecum. The polyps were 7 mm in size. These polyps were removed with a cold biopsy forceps. Resection and retrieval were complete. Verification of patient identification for the specimen was done. Estimated blood loss was minimal. A few small-mouthed diverticula were found in the recto-sigmoid colon. Impression: - Two 7 mm polyps in the ascending colon and in the cecum, removed with a cold biopsy forceps. Resected and retrieved. - Diverticulosis in the recto-sigmoid colon. Recommendation: - Discharge patient to home (ambulatory). - Resume previous diet. - Continue present medications. - Await pathology results. - Repeat colonoscopy in 5 years for surveillance. Procedure Code(s): --- Professional --- 35924, Colonoscopy, flexible; with biopsy, single or multiple CPT copyright 2021 [employer]. All rights reserved. The codes documented in this report are preliminary and upon tax record clerk review may be revised to meet current compliance requirements. Edilson Porras DO 08/20/2024 1:35:07 PM This report has been signed electronically. Number of Addenda: 0 Note Initiated On: 08/20/2024 12:56 PM
--- NOTE | 2024-08-20 14:10 | PCM.POST.ANE ---
Anesthesia: Postop Eval I Current Vital Signs Temperature: 97.7 F Pulse Rate: 62 Blood Pressure: 117/69 Respiratory Rate: 16 Pulse Ox: 97 Oxygen Delivery Method: Room Air Assessment Airway patent: Yes Spontaneous unlabored respirations: Yes Mental status: Awake and Calm nausea: No Vomiting: No Anesthesia Complication: No Fluid Hydration Crystalloid volume administer (ml): 800 Total IV fluid infused: 800 Progress Note Anesthesia document: Postop Eval 1 completed: Yes
--- NOTE | 2024-08-20 19:14 | PCM.POSTANE2 ---
Anesthesia Postop Eval I Sum Postop Eval Completion status Anesthesia document: Postop Eval 1 completed: Yes Anesthesia Postop Eval I Summary Anesthesia Postop Eval I Summary: Anesthesia Postop Eval I: Assessment Summary Airway patent Yes 08/20/24 14:13 [email or web address] Spontaneous unlabored Yes 08/20/24 14:13 [email or web address] respirations Mental status Awake,Calm 08/20/24 14:13 [email or web address] nausea No 08/20/24 14:13 [email or web address] Vomiting No 08/20/24 14:13 [email or web address] Anesthesia Postop Eval I: Fluid Summary Crystalloid volume administer 800 08/20/24 14:16 [email or web address] (ml) Colloids volume administered ( ml) Blood Product volume administered (ml) Total IV fluid infused 800 08/20/24 14:16 [email or web address] Anesthesia Postop Eval I: Summary Notes Anesthesia Complication No 08/20/24 14:13 [email or web address] Anesthesia Complication Comment: Post-operative progress note Anesthesia: Postop Eval II Evaluation Mental status: Awake and Calm Pain Level: 0 nausea: No Vomiting: No Complications Anesthesia Complication: No
== END 2024-08-20 14:12 | disposition home or self-care (01) ==
LOC: EN 10:42 → AC 10:44
PROVIDERS: PCP Family Medicine; Referring Provider Family Medicine; Visit Provider Internal Medicine Gastroenterology
PROC: 0DJD8ZZ Inspection of Lower Intestinal Tract, Via Natural or Artificial Opening Endoscopic (ICD-10-PCS; CPT 45378; principal; 2024-08-20 11:55)
DX: Z12.11 Encounter for screening for malignant neoplasm of colon (principal); I48.0 Paroxysmal atrial fibrillation; E11.42 Type 2 diabetes mellitus with diabetic polyneuropathy; K57.30 Diverticulosis of large intestine without perforation or abscess without bleeding; Z86.718 Personal history of other venous thrombosis and embolism; Z79.899 Other long term (current) drug therapy; Z87.891 Personal history of nicotine dependence; E78.5 Hyperlipidemia, unspecified; I10 Essential (primary) hypertension; Z79.01 Long term (current) use of anticoagulants; Z79.85 Long-term (current) use of injectable non-insulin antidiabetic drugs; K21.9 Gastro-esophageal reflux disease without esophagitis; D12.2 Benign neoplasm of ascending colon; D12.0 Benign neoplasm of cecum
CPT/HCPCS: 45380; 82962; 88305; J2405